=== PATIENT | male | born 1970 | race Caucasian/White ===

== ENCOUNTER 2022-02-02 16:37 | Outpatient (REF) | payer OTHER, SELFPAY ==
--- OUTSIDE RECORDS SUMMARY | 2022-02-02 18:47 | XMS_ITS | Clinical Summary ---
:1970 Author Organization [employer] [facility] [facility] [place] [address] Care Team Providers Name Role Phone Leodan Miller MD Primary Care Provider [phone] Chadd Rome MD Unavailable [phone] Nurses, Advanced Heart Failure Unavailable [phone] Allergies Active Allergy Reactions Severity Noted Date Comments Disopyramide Phosphate GI Upset, Vomiting 06/30/2017 Possible transaminitis Medications Medication Sig Dispensed Refills Start Date End Date Status ascorbic acid, Take 1 tablet 0 A ctive vitamin C, (VITAMIN by mouth once C) 125 mg chew daily. amoxicillin (AMOXIL) Take 2,000 mg 0 Active 500 mg capsule by mouth each time if needed for Other (Specify) (prior to dental procedure). Vitamin D-3 50 mcg TAKE 1 TABLET 90 Tablet 2 09/07/2021 Active (2,000 unit) BY MOUTH tabletIndications: EVERY DAY Persistent atrial fibrillation (HC) apixaban (Eliquis) 5 Take 1 Tablet 180 tablet. 3 10/14/2021 Active mg (5 mg) by tabletIndications: mouth in the Persistent atrial morning and 1 fibrillation (HC) Tablet (5 mg) in the evening. rosuvastatin Take 1 Tablet 90 Tablet 1 12/01/2021 Ac tive (CRESTOR) 40 mg (40 mg) by tabletIndications: mouth at Hyperlipidemia, bedtime. unspecified hyperlipidemia type sertraline (ZOLOFT) TAKE 1 TABLET 90 Tablet 1 12/31/2021 Active 50 mg (50 MG) BY tabletIndications: MOUTH ONCE Moderate episode of DAILY. TAKE recurrent major WITH 100 MG depressive disorder TAB FOR TOTAL (HC), Generalized OF 150 MG anxiety disorder, DAILY. PTSD (post-traumatic stress disorder) sertraline (ZOLOFT) TAKE 1 TABLET 90 Tablet 1 12/31/2021 Active 100 mg BY MOUTH ONCE tabletIndications: DAILY WITH 50 Moderate episode of MG TAB FOR recurrent major TOTAL OF 150 depressive disorder MG DAILY (HC), Generalized anxiety disorder, PTSD (post-traumatic stress disorder) spironolactone TAKE 1/2 45 Tablet 3 12/29/2021 Acti ve (ALDACTONE) 25 mg TABLET BY tabletIndications: MOUTH ONCE Hypertrophic DAILY cardiomyopathy (HC) zolpidem (AMBIEN) 5 TAKE 1 TABLET 30 Tablet 0 01/25/2022 Active mg BY MOUTH tabletIndications: EVERY DAY AT Insomnia, idiopathic BEDTIME NEEDED FOR SLEEP zolpidem (AMBIEN) 10 TAKE 1 TABLET 30 Tablet 0 01/25/2022 Active mg BY MOUTH tabletIndications: EVERY DAY AT Insomnia, idiopathic BEDTIME NEEDED FOR SLEEP metoprolol tartrate Take 1 Tablet 90 Tablet 3 01/29/2022 Active (LOPRESSOR) 25 mg (25 mg) by tabletIndications: mouth two Cardiomyopathy, times daily. unspecified type (HC) metoprolol tartrate TAKE 1 TABLET 180 Tablet 3 04/16/202101/02 Discontinued (LOPRESSOR) 25 mg BY MOUTH 2 tabletIndications: TWICE A DAY Cardiomyopathy, unspecified type (HC) zolpidem (AMBIEN) 10 TAKE 1 TABLET 30 Tablet 0 12/29/202101/02 Discontinued mg BY MOUTH AT 2 tabletIndications: BEDTIME Insomnia, idiopathic NEEDED FOR SLEEP zolpidem (AMBIEN) 5 TAKE 1 TABLET 30 Tablet 0 12/29/202101/25 Discontinued mg BY MOUTH AT 2 tabletIndications: BEDTIME Insomnia, idiopathic NEEDED FOR SLEEP Active Problems Problem Noted Date Severe episode of recurrent major depressive disorder, without psychotic 07/15/2021 features Generalized anxiety disorder 04/15/2018 PTSD (post-traumatic stress disorder) 04/15/2018 Chronic insomnia 04/15/2018 Moderate episode of recurrent major depressive disorde r 04/15/2018 Intracranial hemorrhage 07/20/2017 ICD (implantable cardioverter-defibrillator) in place 05/05/2016 Hypertrophic cardiomyopathy 08/03/2012 Overview: Sees phlebotomy program coordinator at [facility] for this. Hyperlipidemia Atrial fibrillation and flutter Resolved Problems Problem Noted Date Resolved Date At risk for HIV due to homosexual contact 07/23/2017 07/15/2021 Simple partial status epilepticus 07/20/20172021 Transaminitis 06/18/2017 07/15/2021 Cholelithiasis 04/12/2017 06/20/2020 Anticoagulation goal of INR 2 to 3 07/26/201307/26 Anticoagulation monitoring, INR range 2-3 (2.5-3.0) 07/27/19 14 08/25/2019 Persistent atrial fibrillation 08/15/2012 Encounter for long-term (current) use of anticoagulants 08/0107/26/2013 Atypical atrial flutter 06/20/2020 Cardiogenic shock 06/20/2020 Cardiomyopathy 06/20/2020 Overview: [facility]SS Encounters Date Type Specialty Care Team Description 01/26/2022 Refill Chadd Rome MD (Metoprolol Tar trate) 01/25/2022 Refill Leodan Miller Refill Requ german Caraballo MD (Zolpidem, Zolp idem) 01/17/2022 E-Visit Benton Reaves 01/11/2022 Orders Only Lab, Crlb Lab 12/28/2021 Refill Chadd Rome MD (Spironolactone ) 12/28/2021 Refill Leodan Miller Refill Requ german Caraballo MD (Zolpidem, Zolp idem) 12/28/2021 Refill Yusra Calderon Refill Req franklyn Castillo MD (Sertraline, Se rtraline) 12/01/2021 Office Visit Chadd Rome MD 12/01/2021 Hospital Encounter Dianelys Leahy Ca rdiomyopathy, QUALITY PROCESS AUDITOR unspecified type (HC) Rachel Dalton 12/01/2021 Orders Only Lab 12/01/2021 Refill Leodan Miller Refill Requ german Caraballo MD (Zolpidem, Zolp idem) 12/01/2021 Travel 11/30/2021 Travel 11/20/2021 Orders Only Leticia Oviedo RN <No sca ns attached> 11/11/2021 Orders Only Chadd Rome <No scans at tached> MD Papito 11/03/2021 Refill Leodan Miller Refill Requ est MD Rashmi (Zolpidem, Zolp idem) from Last 3 Months Immunizations Name Administration Dates Next Due AMB Influenza, IIV4 PF (=>6 mos 02/06/2020, 02/20/2019, 01/02 Flulaval,Fluzone Fluarix)(Flu Clinic Only) COVID-19 vaccine ([place] 08/03/2020, 07/13/2020 30mcg/0.3mL) PF, MDV Influenza Virus, Unspecified 01/29/2021, 01/31/2017, 013, 02/01/2012 Influenza, High-dose Inactivated 01/31/2013 Influenza, IIV3 (Age >=3 years) 02/02/2013, 02/01/2012, 01/02, 01/31/2010 Influenza, IIV4 01/27/2018, 01/21/2015, 02/01/2014 Influenza, IIV4 (=>6mos) MDV 01/22/2016, 01/21/2015 Pneumococcal Poly,23-Valent 08/15/2012, 08/15/2012 (Pneumovax) Td, Preservative Free (age >= 7 08/17/2006 Years) Tdap 01/27/2018, 08/17/2006 Zoster (Shingrix-RZV, recombinant) 08/30/2020, 06/28/2020 Family History Medical History Relation Name Comments GI Disease Father Gallabladder Hyperlipidemia Father GI Disease Mother gallbladder Heart Disease Mother cardiomyopathy Cancer-colon No Family History Cancer-prostate No Family History Diabetes No Family History Relation Name Status Comments Father Mother Social History Tobacco Use Types Packs/Day Years Used Date Never Smoker Smokeless Tobacco: Never Used Tobacco Cessation: Counseling Given: Yes Alcohol Use Standard Drinks/Week Comments Not Currently 0 (1 standard drink = 0.6 oz pure alcoho l) rare/New Years Alcohol Habits Answer Date Recorded How often do you have a drink containing alcohol? Not asked How many drinks containing alcohol do you have on a Not aske d typical day when you are drinking? How often do you have six or more drinks on one Not asked occasion? Comment: rare/New Years 05/05/2021 Sex Assigned at Date Recorded Not on file Obstetrics History Last Filed Vital Signs Vital Sign Reading Time Taken Comments Blood Pressure 112/70 12/01/2021 2:51 PM CDT Pulse 66 12/01/2021 2:51 PM CDT Temperature 37.1 ??C (98.8 ??F) 01/10/2021 11:56 AM CDT Respiratory Rate 18 01/01/2021 10:45 AM CDT Oxygen Saturation 99% 12/01/2021 2:51 PM CDT Inhaled Oxygen Concentration - - Weight 92.5 kg (204 lb) 12/01/2021 2:51 PM CDT Height 179.7 cm (5' 10.75) 07/15/2021 2:54 PM CDT Body Mass Index 28.65 07/15/2021 2:54 PM CDT Plan of Treatment Upcoming Encounters Date Type Specialty Care Team Description 02/10/2022 Telemedicine Roseann Walker NP [address] [place], [place] [address] (Wo rk) 02/23/2022 Appointment 02/23/2022 Appointment 04/21/2022 Cardiac Device Check 04/21/2022 Office Visit Yue Ferrer MD [address] [facility] [place] [address] (Wo rk) Health Maintenance Due Date Last Done Comments COVID-19 vaccine series (5 - 09/24/2021 07/30/2021, 021, Booster for Pfizer series) 08/03/2020, Additiona l history exists Influenza for age 50-64 01/01/2022 01/29/2021, 02/06/2020, 02/20/2019, Additional history exists BMI (ht and wt on same day) for 07/15/2022 07/15/2021, 01/01, age 18+ 11/28/2019, Additional history exists Depression screening for age 12+ 07/15/2022 07/15/2021, , 06/27/2021, Additional history exists Fecal testing non-DNA 01/11/2023 01/11/2022, 08/08/2020 (FIT,FOBT,iFOBT) for age 45-75 Lipids for age 45-75 12/01/2026 12/01/2021, 06/05/2021, 10/08/2020, Additional history exists Tetanus booster 01/28/2028 01/27/2018, 08/17/2006, 08/17/2006 Hepatitis C screening for age Completed 04/14/2017, 2016 18-79 Tdap Completed 01/27/2018, 08/17/2006 Zoster (shingles) series for age Completed 08/30/2020, 50+ Medical Devices Implanted Type Area Senior Electrical Estimator Device Shelf Model / Identifier Expiration Serial / Date Lot Dual Chamber Mri Conditional Icd ICD [employer] EVERA MRI XT DR DAWN [id number] / Implanted: 07/15/2017 by Yue Ferrer MD (Quantity not on file) Only [id number] / Jenny Hole Cover Neuro 17mm Synthes Low Pro Titnm - [id number] Right: J [employer] [id number]# / Implanted: Qty: 1 on 07/23/2017 by Parmjit Del Angel MD at [facility] [employer]ium CMF / Procedures Procedure Name Priority Date/Time Associated Diagnosis Comme nts OCCULT BLOOD IFOBT Routine 01/11/2022 12:00 Screening for Resu lts for this STOOL PM CDT colorectal cancer procedure are in the results section. STRESS TEST Routine 12/01/2021 1:45 Cardiomyopathy, Results f or this CARDIOPULMONARY PM CDT unspecified type (HC) pro cedure are in EXERCISE the results section. MAGNESIUM Routine 12/01/2021 12:41 Heart failure, Results f or this PM CDT unspecified HF procedure are in chronicity, the results unspecified heart section. failure type (HC) BASIC METABOLIC PANEL Routine 12/01/2021 12:41 Heart failure, Results for this PM CDT unspecified HF procedure are in chronicity, the results unspecified heart section. failure type (HC) ALT (SGPT) Routine 12/01/2021 12:41 Hyperlipidemia, Results for this PM CDT unspecified procedure are i n hyperlipidemia type the resu lts section. AST (SGOT) Routine 12/01/2021 12:41 Hyperlipidemia, Results for this PM CDT unspecified procedure are i n hyperlipidemia type the resu lts section. LIPID PANEL Routine 12/01/2021 12:41 Hyperlipidemia, Results for this PM CDT unspecified procedure are i n hyperlipidemia type the resu lts section. BRAIN NATRIURETIC Routine 12/01/2021 12:41 Cardiomyopathy, Res ults for this PEPTIDE PM CDT unspecified type (HC) proced ure are in the results section. from Last 3 Months Results OCCULT BLOOD IFOBT STOOL (01/11/2022 12:00 PM CDT) athologist Signature STOOL BLOOD Negative Negative 01/16/2022 [facility] ,IFOBT 12:15 PM CDT [facility] Specimen Anatomical Collection Method Collection Time Receive d Time (Source) Location / / Volume Laterality Stool STOOL SPECIMEN / Non-Blood / 01/11/2022 12:00 022 7:48 Unknown Unknown PM CDT AM CDT Leodan Miller MD LABORATORY Performing Organization Address City/State/ZIP Code Phon e Number [place] [phone] [place] [address] CLINIC STRESS TEST CARDIOPULMONARY EXERCISE (12/01/2021 1:45 PM CDT) Anatomical Region Laterality Modality Ultrasound Specimen (Source) Anatomical Location Collection Method / Collectio n Time Received Time / Laterality Volume Narrative 12/03/2021 7:01 AM CDT [facility] Cardiovascular Diagnostic Services [facility] [address] [place] [address] [facility] Cardiopulmonary Exercise Stress Test Name: Rickey Shelton Sex: male : 1970 Age: 51 y.o. Location: [facility] Exam Date: 12/01/2021 Referring: Chadd Rome MD Reason for test: End-stage hypertrophic cardiomyopathy. Protocol: Treadmill/ Modified Ayush ? ?Exercise Time: 8:26 Pertinent Medications: Lopressor 25 mg b .i.d. Baseline Peak % of Pred. Max HR Heart Rate 71 115 68 Blood Pressure 94/68 110/64 ?? Double Product 12,650 ?? Reason for Stopping Test: nausea Final Impression: 1. Inadequate exercise effort for assess ment of myocardial ischemia. 2. Non-diagnostic exercise stress ECG. 3. Adequate exercise effort for assessme nt of peak exercise capacity with a peak RER of 1.14. 4. Severely reduced peak exercise capaci ty with a peak VO2 of 16.9 mL/kg/minute (48% of the age, sex, and b ishaan weight predicted maximum VO2). 5. There were no oxygen desaturations an d the breathing reserve remained normal at 46.4%. 6. The ventilatory efficiency was mildly abnormal with a VE/VCO2 slope of 33 at the anaerobic threshold. 7. The peak O2 pulse was mildly to moder ately reduced at 14 mL/beat. 8. The VO2 to workload relationship was blunted. 9. There was no exercise oscillatory matt tilation. 10. The end-tidal CO2 response to exerci se was blunted. Interpretation: Following the collection of baseline nasrin ctrocardiographic and cardiopulmonary data, the patient underw ent graded exercise on the treadmill according to the Ayush prot ocol. Resting heart rate was 71 beats per minute, resting blood pressure 94/68 mmHg. The patient exercised for a total of 8 minutes and 26 seconds, stopping due to nausea. Achieved a maximum heart rate of 115 beats per mi nute (68%% of the age-predicted maximum heart rate) and a maximum blood pressure of 110/64 mmHg, yielding a rate pressure product of 12,650. Heart rate recovery at 1 minute was normal at 14 beats per minute. Resting maximum voluntary ventilation ca lculation was moderately reduced at 114 L (73% predicted). Resting electrocardiogram demonstrates s inus rhythm with normal axis and normal intervals. With graded exercise, there were no ischemic changes noted and no sustained dysrhythmias. Thi s study was nondiagnostic due to inadequate heart rate response. The resting cardiopulmonary data is nota ble for a resting VO2 of 3.4 mL/kg/minute. The resting room air satur ation is 98%. The minute ventilation is 8 L/min with a respirator y rate of 11. The anaerobic threshold was achieved at 4 minutes and 10 seconds of exercise time as assessed by the V-slope and end-tidal methods, yielding a value of 13.6 mL/kg/minute (39% of the a ge, sex, and body weight predicted maximum VO2). The peak oxygen consumption at the concl usion of exercise was 16.9 mL/kg/minute (48% of the age, sex, and b ishaan weight predicted maximum VO2). This was achieved with an adequate respi ratory exchange ratio of 1.14. There were no oxygen desaturations and t he breathing reserve remained normal at 46.4%. The ventilatory efficie ncy was mildly abnormal with a VE/VCO2 slope of 33 at the anaerobic thr eshold. The peak O2 pulse was mildly to moderately reduced at 14 mL/be at. The VO2 to workload relationship was blunted. There was no e xercise oscillatory ventilation. The end-tidal CO2 response to exercise w as blunted. [facility] 2017, [phone] Chadd Rome MD MAS/car / Dianelys Leahy [facility] CARDIAC SERVICES ORD (ABNORMAL) BRAIN NATRIURETIC PEPTIDE (12/01/2021 12:41 PM CDT) [facility] BRAIN BELLE 227 (H) <100 pg/mL 12/01/2021 [facility] PEPTIDE 1:31 PM CDT LABORATORY-AN[facility] TRAL LABORATORY Specimen Anatomical Collection Method / Collection Time Recei january Time (Source) Location / Volume Laterality Blood BLOOD SPECIMEN / Venipuncture / 12/01/2021 12:41 12/01 Unknown Unknown PM CDT 12:52 PM CDT Dianelys Leahy [facility] CHEMISTRY Performing Organization Address City/State/ZIP Code Phon e Number [facility] [address] [place] [address] LABORATORY-CENTRAL 2000 LABORATORY ALT (SGPT) (12/01/2021 12:41 PM CDT) athologist [facility] ALT (SGPT) 14 8 - 45 IU/L 12/01/2021 [facility] 1:25 PM CDT LABORATORY-CENT RAL LABORATORY Specimen Anatomical Collection Method / Collection Time Recei january Time (Source) Location / Volume Laterality Blood BLOOD SPECIMEN / Venipuncture / 12/01/2021 12:41 12/01 Unknown Unknown PM CDT 12:52 PM CDT Chadd Rome MD CHEMISTRY Performing Organization Address City/[facility]/ZIP Code Phon e Number [facility] [phone] [place] [address] [place] [address] LABORATORY-CENTRAL 2000 LABORATORY AST (SGOT) (12/01/2021 12:41 PM CDT) P athologist Signature AST (SGOT) 21 2 - 40 IU/L 12/01/2021 [facility] 1:25 PM CDT LABORATORY-CENT RAL LABORATORY Specimen Anatomical Collection Method / Collection Time Recei january Time (Source) Location / Volume Laterality Blood BLOOD SPECIMEN / Venipuncture / 12/01/2021 12:41 12/01 Unknown Unknown PM CDT 12:52 PM CDT Chadd Rome MD CHEMISTRY Performing Organization Address [facility]/ZIP Code Phon e Number [facility] [address] [place] [address] [place] [address] LABORATORY-CENTRAL 2000 LABORATORY MAGNESIUM (12/01/2021 12:41 PM CDT) athologist Signature MAGNESIUM 2.2 1.6 - 2.6 12/01/2021 [facility] mg/dL 1:25 PM CDT LABORATORY-CENTR AL LABORATORY Specimen Anatomical Collection Method / Collection Time Recei january Time (Source) Location / Volume Laterality Blood BLOOD SPECIMEN / Venipuncture / 12/01/2021 12:41 12/01 Unknown Unknown PM CDT 12:52 PM CDT Chadd Rome MD CHEMISTRY Performing Organization Address City/[facility]/ZIP Code Phon e Number [facility] [address] [facility] [address] [place] [address] LABORATORY-CENTRAL 2000 LABORATORY (ABNORMAL) LIPID PANEL (12/01/2021 12:41 PM CDT) [facility] Method Time Signature CHOLESTEROL,TOTAL 190 100 - 199 12/01/2021 [facility] mg/dL 1:25 PM CDT LABORATORY-[facility] LAB[facility]ATORY TRIGLYCERIDES 222 (H) <150 12/01/2021 [facility] mg/dL 1:25 PM CDT LAB[facility]AT[facility] HDL CHOLESTEROL 44 >40 mg/dL 12/01/2021 [facility] 1:25 PM CDT LABORATORY[facility] LAB[facility] NON-HDL 146 (H) <145 12/01/2021 [facility] CHOLESTEROL mg/dl 1:25 PM CDT LABORAT[facility] CHOL/HDL RATIO 4.32 <4.50 12/01/2021 [facility] 1:25 PM CDT [facility]AT[facility] LDL CHOLESTEROL 102 <=130 12/01/2021 [facility] mg/dL 1:25 PM CDT [facility]AT[facility] VLDL CHOLESTEROL 44 (H) <=30 12/01/2021 [facility] mg/dL 1:25 PM CDT LABORAT[facility] TR[facility] LABORATORY PROVIDER ORDERED RANDOM 12/01/2021 [facility] STATUS 1:25 PM CDT LABORAT[facility] LABORATORY Specimen Anatomical Collection Method / Collection Time Recei january Time (Source) Location / Volume Laterality Blood BLOOD SPECIMEN / Venipuncture / 12/01/2021 12:41 12/01 Unknown Unknown PM CDT 12:52 PM CDT Chadd Rome MD CHEMISTRY Performing Organization Address City/State/ZIP Code Phon e Number [facility] [phone] [place], [place] [address]E [place] [phone] LABORATORY-CENTRAL 2000 LABORATORY (ABNORMAL) BASIC METABOLIC PANEL (12/01/2021 12:41 PM CDT) Analysis Performed At Patho logist Time Signature SODIUM 141 135 - 145 12/01/2021 [facility] mmol/L 1:24 PM CDT LABORATORY-[facility] LAB[facility]ATORY POTASSIUM 4.9 3.5 - 5.0 12/01/2021 [facility] mmol/L 1:24 PM CDT LABORATORY[facility] CHLORIDE 105 98 - 110 12/01/2021 [facility] mmol/L 1:24 PM CDT LABORATORY[facility] CO2,TOTAL 28 21 - 31 12/01/2021 [facility] mmol/L 1:24 PM CDT LABORATORY[facility] LAB[facility] ANION GAP 8 5 - 18 12/01/2021 [facility] 1:24 PM CDT LABORATORY[facility]ORY GLUCOSE 105 (H) 65 - 100 12/01/2021 [facility] mg/dL 1:24 PM CDT LABORAT[facility] CALCIUM 10.1 8.5 - 10.5 12/01/2021 [facility] mg/dL 1:24 PM CDT LABORAT[facility] BUN 13 8 - 25 12/01/2021 [facility] mg/dL 1:24 PM CDT LAB[facility]AT[facility] CREATININE 1.14 0.72 - 12/01/2021 [facility] 1.25 mg/dL 1:24 PM CDT LAB[facility]AT[facility] BUN/CREAT RATIO 11 10 - 20 12/01/2021 [facility] 1:24 PM CDT LAB[facility] eGFR 78 (L) >90 12/01/2021 [facility] mL/min/1.7 1:24 PM CDT LABORATORY-ANNA 3m2 TRAL LABORATORY Comment: As of 2021, eGFR is calcu lated by the CKD-EPI creatinine equation without race adjustment. eGFR can be inf luenced by muscle mass, exercise, and diet. The reported eGFR is an estimation only and is only applicable if the renal function is stable. Specimen Anatomical Collection Method / Collection Time Recei january Time (Source) Location / Volume Laterality Blood BLOOD SPECIMEN / Venipuncture / 12/01/2021 12:41 12/01 Unknown Unknown PM CDT 12:52 PM CDT Chadd Rome MD CHEMISTRY Performing Organization Address City/State/ZIP Code Phon e Number [facility] [address] [place] [address] LABORATORY-CENTRAL 2000 LABORATORY from Last 3 Months Insurance Payer Benefit Plan / Subscriber ID Effective Dates Phone Addre ss Type [facility] [employer] [employer] [id number] 2014-Present [address] [place] [address] Advance Directives Documents on File Type Date Recorded Patient Head Inspector And Center Marker Explanati on Healthcare Directive 12/15/2018 10:34 AM [facility] RE DIRECTIVE, FRACISCO RODRÍGUEZ, Latest Code Status on File Code Status Date Activated Date Inactivated Comments Full Code 01/01/2021 9:09 AM 01/01/2021 1:08 PM Code Status Discussion: Not Discussed Full Code 01/10/2018 6:18 PM 01/11/2018 5:31 PM Full Code 01/04/2018 2:08 PM 01/04/2018 5:25 PM Full Code 12/28/2017 7:02 AM 12/28/2017 5:57 PM Full Code 11/01/2017 8:30 PM 11/03/2017 2:33 PM Care Teams Glass Tube Bender Relationship Specialty Start Date End Date Leodan Miller PCP - General Family Practice 03/23/17 MD Rashmi [facility] [place] [address] Chadd Rome Cardiology - CHF Cardiovascular Disease 07/19/17 MD Pap[facility] [address] [place] [phone] Nurses, Advanced Heart Advanced Heart 07/19/17 Failure Failure/Transplant Card [address], [place] [phone]
--- OUTSIDE RECORDS SUMMARY | 2022-02-02 18:47 | XMS_ITS ---
:1970 Author Care Team Providers Name Role Phone DR. LUIS MCCORD Primary Care Provider [phone] Allergies None recorded. Medications Name Status Start Date Stop Date ? ? amiodarone 400 mg tablet Active ? Not rolando ilable amoxicillin 500 mg capsule Active ? Not a vailable dexamethasone 2 mg tablet Active ? Not av ailable Digox 125 mcg (0.125 mg) tablet Active ? Not available DILT-XR 180 mg capsule, extended release Active ? Not available dofetilide 500 mcg capsule Active ? Not a vailable furosemide 20 mg tablet Active ? Not avai lable levetiracetam 1,000 mg tablet Active ? No t available metoprolol tartrate 25 mg tablet Active ? Not available metoprolol tartrate 50 mg tablet Active ? Not available Norpace CR 100 mg capsule,extended release Active ? Not available oxycodone 5 mg tablet Active ? Not availa ble oxycodone-acetaminophen 5 mg-325 mg tablet Active ? Not available pantoprazole 40 mg tablet,delayed release Active ? Not available potassium chloride ER 10 mEq tablet,extended Active ? Not available release(part/cryst) potassium chloride ER 20 mEq tablet,extended Active ? Not available release(part/cryst) Ranexa 500 mg tablet,extended release Active ? Not available sotalol 160 mg tablet Active ? Not availa ble warfarin 5 mg tablet Active ? Not availab le zaleplon 5 mg capsule Active ? Not availa ble zolpidem 5 mg tablet Active ? Not availab le Problems None recorded. Procedures None recorded. Results Lab Results None recorded. Past Encounters None recorded. Social History None recorded. Vaccine List None recorded. Plan of Care Reminders Provider Appointments None recorded. ? ? Lab None recorded. ? ? Referral None recorded. ? ? Procedures None recorded. ? ? Surgeries None recorded. ? ? Imaging None recorded. ? ? Vitals None recorded.
[2022-02-02 19:31] LABS: SARS PCR* Negative SARS-CoV-2 (Negative)
== END 2022-02-02 16:38 | disposition home or self-care (01) ==
LOC: NPINS 16:37
PROVIDERS: PCP Family Medicine; Visit Provider Nurse Practitioner
DX: Z20.822 Contact with and (suspected) exposure to COVID-19 (principal)
CPT/HCPCS: 87635

== ENCOUNTER 2022-02-03 21:02 | Outpatient (CLI) | payer OTHER, SELFPAY ==
--- OUTSIDE RECORDS SUMMARY | 2022-02-03 21:14 | XMS_ITS | Clinical Summary ---
:1970 Author Organization [facility] [place] [address] Care Team Providers Name Role Phone Leodan Miller MD Primary Care Provider [phone] Chadd Rome MD Unavailable [phone] Nurses, Advanced Heart Failure Unavailable [phone] Allergies Active Allergy Reactions Severity Noted Date [...] place 05/05/2016 Hypertrophic cardiomyopathy 08/03/2012 Overview: Sees hemodialysis rn at [place] for this. Hyperlipidemia Atrial fibrillation and flutter [...] Chadd Rome MD 12/01/2021 Hospital Encounter Dianelys Laehy Ca rdiomyopathy, ONLINE FACILITATOR unspecified type (HC) Rachel Dalton 12/01/2021 Orders [...] 01/02 Flulaval,Fluzone Fluarix)(Flu Clinic Only) COVID-19 vaccine (Domee 08/03/2020, 07/13/2020 30mcg/0.3mL) PF, MDV Influenza Virus, [...] Telemedicine Roseann Walker NP [address] [place], [place] [address] (Wo rk) 02/23/2022 Appointment 02/23/2022 Appointment 04/21/2022 Cardiac Device Check 04/21/2022 Office Visit Yue Ferrer MD [address] [facility] [place] [address] (Wo rk) Health Maintenance Due Date Last [...] 08/30/2020, 50+ Medical Devices Implanted Type Area Hand Hardener Device Shelf Model / Identifier Expiration Serial / Date Lot Dual Chamber Mri Conditional Icd ICD Med[employer]onic EVERA MRI XT DR DAWN [id number] / Implanted: 07/15/2017 by Yue Ferrer MD (Quantity not on file) Only [id number] / Jenny Hole Cover Neuro 17mm Synthes Low Pro Titnm - [id number] Right: J [employer] [place] [id number]# / Implanted: Qty: 1 on 07/23/2017 by Parmjit Del Angel MD at [facility] Cranium CMF / Procedures Procedure [...] athologist Signature STOOL BLOOD Negative Negative 01/16/2022 [facility] ,IFOBT 12:15 PM CDT [facility] Specimen Anatomical Collection Method Collection Time Receive d Time (Source) Location / / Volume Laterality Stool STOOL SPECIMEN / Non-Blood / 01/11/2022 12:00 022 7:48 Unknown Unknown PM CDT AM CDT Leodan Miller MD LABORATORY Performing Organization Address City/State/ZIP Code Phon e Number [place] [phone] [place] [address] CLINIC STRESS TEST CARDIOPULMONARY EXERCISE (12/01/2021 1:45 PM CDT) Anatomical Region Laterality Modality Ultrasound Specimen (Source) Anatomical Location Collection Method / Collectio n Time Received Time / Laterality Volume Narrative 12/03/2021 7:01 AM CDT [facility] Cardiovascular Diagnostic Services [facility] [address] [place] [address] [facility] Cardiopulmonary Exercise Stress Test Name: Rickey Shelton Sex: male : 1970 Age: 51 y.o. Location: [facility] Exam Date: 12/01/2021 Referring: Chadd Rome MD [...] CO2 response to exercise w as blunted. [facility] 2017, [phone] Chadd Rome MD MAS/car / Dianelys Leahy [facility] CARDIAC SERVICES ORD (ABNORMAL) BRAIN NATRIURETIC PEPTIDE (12/01/2021 12:41 PM CDT) [facility] BRA[facility] BELLE 227 (H) <100 pg/mL 12/01/2021 [facility] PEPTIDE 1:31 PM CDT LABORATORY-[facility] LABORATORY Specimen Anatomical Collection Method / Collection Time Recei january Time (Source) Location / Volume Laterality Blood BLOOD SPECIMEN / Venipuncture / 12/01/2021 12:41 12/01 Unknown Unknown PM CDT 12:52 PM CDT Dianelys Leahy [facility] CHEMISTRY Performing Organization Address City/State/ZIP Code Phon e Number [facility] [address] [place] [address] LABORATORY-CENTRAL 2000 LABORATORY ALT (SGPT) (12/01/2021 12:41 PM CDT) athologist [facility] ALT (SGPT) 14 8 - 45 IU/L 12/01/2021 [place] 1:25 PM CDT LABORATORY-CENT RAL LABORATORY Specimen Anatomical Collection Method / Collection Time Recei january Time (Source) Location / Volume Laterality Blood BLOOD SPECIMEN / Venipuncture / 12/01/2021 12:41 12/01 Unknown Unknown PM CDT 12:52 PM CDT Chadd Rome MD CHEMISTRY Performing Organization Address City/[facility]/ZIP Code Phon e Number [facility] [address] [place] [address] [place] [address] LABORATORY-CENTRAL 2000 LABORATORY AST (SGOT) (12/01/2021 12:41 PM CDT) P athologist Signature AST (SGOT) 21 2 - 40 IU/L 12/01/2021 [facility] 1:25 PM CDT LABORATORY-CENT RAL LABORATORY Specimen Anatomical Collection Method / Collection Time Recei january Time (Source) Location / Volume Laterality Blood BLOOD SPECIMEN / Venipuncture / 12/01/2021 12:41 12/01 Unknown Unknown PM CDT 12:52 PM CDT Chadd Rome MD CHEMISTRY Performing Organization Address [facility]/ZIP Code Phon e Number [place] [facility] [phone] [place] [address] [place] [address] LABORATORY-CENTRAL 2000 LABORATORY MAGNESIUM (12/01/2021 12:41 PM CDT) athologist Signature MAGNESIUM 2.2 1.6 - 2.6 12/01/2021 [facility] mg/dL 1:25 PM CDT LABORATORY-CENTR AL LABORATORY Specimen Anatomical Collection Method / Collection Time Recei january Time (Source) Location / Volume Laterality Blood BLOOD SPECIMEN / Venipuncture / 12/01/2021 12:41 12/01 Unknown Unknown PM CDT 12:52 PM CDT Chadd Rome MD CHEMISTRY Performing Organization Address City/[facility]/ZIP Code Phon e Number [facility] [address] [address] LABORATORY-CENTRAL 2000 LABORATORY (ABNORMAL) LIPID PANEL (12/01/2021 12:41 PM CDT) [facility] Method Time Signature CHOLESTEROL,TOTAL 190 100 - 199 12/01/2021 [facility] mg/dL 1:25 PM CDT LABORATORY-[facility] LABORATORY TRIGLYCERIDES 222 (H) <150 12/01/2021 [facility] mg/dL 1:25 PM CDT LABORATORY-[facility] LABORATORY HDL CHOLESTEROL 44 >40 mg/dL 12/01/2021 [facility] 1:25 PM CDT LABORATORY-[facility] LABORATORY NON-HDL 146 (H) <145 12/01/2021 [facility] CHOLESTEROL mg/dl 1:25 PM CDT LAB[facility]AT[facility] CHOL/HDL RATIO 4.32 <4.50 12/01/2021 [facility] 1:25 PM CDT LABORATORY-[facility] LABORATORY LDL [...] Organization Address City/State/ZIP Code Phon e Number [facility] [phone] [place], [place] [address]E [place] [phone] LABORATORY-CENTRAL 2000 LABORATORY (ABNORMAL) BASIC METABOLIC PANEL (12/01/2021 12:41 PM CDT) Analysis Performed At Patho logist Time Signature SODIUM 141 135 - 145 12/01/2021 [facility] mmol/L 1:24 PM CDT LABORATORY-[facility] LABORATORY POTASSIUM 4.9 3.5 - 5.0 12/01/2021 [facility] mmol/L 1:24 PM CDT LABORATORY[facility] LAB[facility]AT[facility] CHLORIDE 105 98 - 110 12/01/2021 [facility] mmol/L 1:24 PM CDT LABORATORY[facility] LAB[facility] CO2,TOTAL 28 21 - 31 12/01/2021 [facility] mmol/L 1:24 PM CDT LABORATORY[facility] LABORATORY ANION GAP 8 5 - 18 12/01/2021 [facility] 1:24 PM CDT LABORATORY[facility] LAB[facility] GLUCOSE 105 (H) 65 - 100 12/01/2021 [facility] mg/dL 1:24 PM CDT LABORATORY-[facility]NA TRAL LABORATORY [...] Address City/State/ZIP Code Phon e Number [facility] [address] [place] [address] LABORATORY-CENTRAL 2000 LABORATORY from Last 3 Months Insurance Payer Benefit Plan / Subscriber ID Effective Dates Phone Addre ss Type [facility] [employer] [id number] 2014-Present [address] [place] [address] Advance Directives Documents on File Type Date Recorded Patient Certified Nurse Practitioner Explanati on Healthcare Directive 12/15/2018 10:34 AM [...] 8:30 PM 11/03/2017 2:33 PM Care Teams Resolution Expert Relationship Specialty Start Date End Date Leodan Miller PCP - General Family Practice 03/23/17 MD [facility] [place] [address] Chadd Rome Cardiology - CHF Cardiovascular Disease 07/19/17 MD [facility] [address] [place] [phone] Nurses, Advanced Heart Advanced Heart 07/19/17 Failure Failure/Transplant Card [address], [place] [phone]
--- OUTSIDE RECORDS SUMMARY | 2022-02-03 21:14 | XMS_ITS ---
:1970 Author Care Team Providers Name Role Phone DR. LUIS MCCORD Primary Care Provider [phone] Allergies None recorded. Medications Name Status Start [...]
== END 2022-02-03 21:03 | disposition home or self-care (01) ==
LOC: SLEEP 21:03
PROVIDERS: PCP Family Medicine
DX: G47.33 Obstructive sleep apnea (adult) (pediatric) (principal)
CPT/HCPCS: 95810

== ENCOUNTER 2022-10-22 21:07 | Emergency (ER) | payer BC, SELFPAY ==
[2022-10-22 21:13] VITALS: BP 117/75; PULSE 68; RESP 18; TEMP 36.7; O2SAT 99; BMI 27.2
--- NOTE | 2022-10-22 21:31 | ED_ITS ---
HPI - General Adult General Time Seen by Provider: 21:31 Date Seen: 10/22/22 Chief complaint: Unspecified Complaint, Adult Stated complaint: possible HIV exposure Time Seen by Provider: 10/22/22 21:13 Source: patient, RN notes reviewed and old records reviewed Mode of arrival: ambulatory Limitations: no limitations History of Present Illness HPI narrative: 52-year-old male who comes in today concerned about HIV exposure. Had receptive anal intercourse yesterday and today with no barrier contraceptive. No known prior history of HIV. Related Data Previous Rx's Medication Instructions Recorded doxycycline monohydrate 100 mg 100 mg PO BID #14 caps 10/22/22 capsule emtricitabine 200 mg-tenofovir 1 tab PO DAILY #30 tabs 10/22/22 alafenamide fumarate 25 mg tablet (Descovy) ondansetron 4 mg disintegrating 4 mg PO Q8H PRN nausea and 10/22/22 tablet vomiting #30 tabs raltegravir 600 mg tablet 1,200 mg (2 x 600 mg) PO DAILY #30 10/22/22 tabs Allergies Allergy/AdvReac Type Severity Reaction Status Date / Time No Known Drug Allergies Allergy Verified 10/22/22 21:15 Exam Narrative: Exam Narrative: General: Well-developed and well-nourished, no acute distress Head: Atraumatic and normocephalic Eyes: Pupils are equal reactive, extraocular motions intact, conjunctiva clear ENT: External nose and ears are normal, posterior pharynx without erythema or exudate Neck: No midline cervical tenderness, full spontaneous range of motion the neck, trachea midline, no adenopathy Heart: Regular rate and rhythm 2/6 systolic murmur Lungs: Clear to auscultation bilaterally without wheezes or crackles Abdomen: Soft, nontender, nondistended with active bowel sounds Musculoskeletal: No tenderness, deformity, or edema Neurologic: Awake, alert, and oriented x3, no gross focal neurologic deficits, cranial nerves intact as tested Psych: Mood and affect are appropriate Skin: No rashes Const: Vital Signs, click to edit/add: Vital Signs - 24 hr 10/22/22 21:13 Temperature 98.0 F Pulse Rate [Right Pulse Oximeter] 68 Respiratory Rate 18 Blood Pressure [Ri ght Upper Arm] 117/75 Pulse Oximetry 99 Oxygen Delivery Me thod Room Air Course Course Hospital Course: Patient presents today with concern for HIV exposure. Discussed low rates of HIV regionally, patient would like to proceed with post exposure prophylaxis and will be started on medications. Also recommended starting post exposure treatment for gonorrhea chlamydia and patient is agreeable. Rocephin, doxycycline, Descovy and Raltegravir prescribed Vital Signs Vital signs: Initial Vital Signs Temperature 98.0 F 10/22/22 21:13 Temperature Source Temporal Artery Scan 10/22/22 21:13 Pulse Rate 68 10/22/22 21:13 Respiratory Rate 18 10/22/22 21:13 Blood Pressure 117/75 10/22/22 21:13 Blood Pressure Mean 89 10/22/22 21:13 Blood Pressure Position Sitting 10/22/22 21:13 Pulse Oximetry 99 10/22/22 21:13 Oxygen Delivery Method Room Air 10/22/22 21:13 Vital Signs Temperature 98.0 F 10/22/22 21:13 Pulse Rate 68 10/22/22 21:13 Respiratory Rate 18 10/22/22 21:13 Blood Pressure 117/75 10/22/22 21:13 Pulse Oximetry 99 10/22/22 21:13 Oxygen Delivery Method Room Air 10/22/22 21:13 Temperature 98.0 F 10/22/22 21:13 Pulse Rate 68 10/22/22 21:13 Respiratory Rate 18 10/22/22 21:13 Blood Pressure 117/75 10/22/22 21:13 Pulse Oximetry 99 10/22/22 21:13 Oxygen Delivery Method Room Air 10/22/22 21:13 Discharge Plan Discharge Clinical Impression: Possible exposure to STD Condition: Stable Instructions: Postexposure Prophylaxis (ED) Additional Instructions: Take medications as prescribed. Follow-up in 2 weeks with her primary care pr ovider for repeat blood testing. Follow-up with your primary care doctor to doctor for HIV testing at 6 weeks, 12 weeks, and 6 months Activity Level: No Restrictions Discharge Diet: Regular Prescriptions: New doxycycline monohydrate 100 mg capsule 100 mg PO BID Qty: 14 0RF Descovy 200-25 mg tablet 1 tab PO DAILY Qty: 30 0RF raltegravir 600 mg tablet 1,200 mg PO DAILY Qty: 30 0RF ondansetron 4 mg tablet,disintegrating 4 mg PO Q8H PRN (Reason: nausea and vomiting) Qty: 30 0RF Follow Up/Referrals: Leodan Miller MD [Primary Care Provider] - Stand Alone Forms: MyHealth Info Instructions
--- OUTSIDE RECORDS SUMMARY | 2022-10-22 21:41 | XMS_ITS | Continuity of Care Document ---
Author Name Unknown Organization [facility] Address [address] [address] [place] [address] Phone Care Team Providers Care Skating Carhop Name Role Phone Ansley TAVAREZ, Donaldo Unavailable Unavailable Procedures Procedure Date Init Hosp-da E&m Mod Severity 8 Subsqt Hosp-da E&m Minr Compl 7 Ugi Endo; W/endo Ultrasound Ex 17 Ercp; W/sphincterotomy/papillo 17 Ercp; W/endo Retro Remov Stone 17 Init Hosp-da E&m Mod Severity 7 Advance Directives Directive Yes / No Effective Date File Name No Information Encounters Encounter Description Practice Location Reason(s) For Visit Diagnoses Date Provider Providers Copied on Encounter [facility], [address] [address], [place], [place], [id number], [place] tel:[phone] [facility] No Information 8 Ansley Fulton. [address] [place] [address], [id number] , [place]. tel:[phone] Init Hosp-da E&m Mod Severity [facility], [address] [address], [place], [place], [id number], [place] [phone] [facility] No Information 8 Ansley Fulton. [address] [place] [address], [id number] , [place]. [phone] Referring Provider: Suzanna Chapman, [address] [place] [address] [place] [id number], [place], [address]. tel:[phone] Subsqt Hosp-da E&m Minr Compl [facility], [address] [address], [place], [place], [id number], [place] tel:[phone] [facility] No Information 7 Reagan Whitfield. [address] [facility] [address], [facility] [address], [place], [id number] , [place]. tel: [phone] Referring Provider: Suzanna Chapman, [address] [place] [address] [place] [id number], [place], [address]. tel:[phone] [facility], [address] [address], [place], [place], [id number], [place] tel:[phone] [facility] No Information 7 Jenny Parham. [address] [place] [address] [address], [place], [id number] , [place]. tel: [phone] Referring Provider: Suzanna Chapman, [address] [place] [address] [place] [id number], [place], [address]. tel:[phone] Init [facility]-da E&m Mod Severity [facility], [address] [address], [place], [place], [id number], [place] tel: [phone] [facility] No Information 7 Kenna Guillory. [address] [place] [address] [address], [place], [id number] , [place]. tel: [phone] Referring Provider: Suzanna Chapman, [address] [place] [address] [place] [id number], [place], [address]. tel:[phone] Family History Family Member Type Diagnosis Age At Onset No Information Payers Payer name Insurance type Covered green party ID Authoriza tion(s) No Information Social History Type Description Quantity Date Captured Comments Sex Male Smoking Status No Information Chief Complaint And Reason For Visit No Information Reason For Referral Reason For Referral No Information Plan Of Treatment Date Type Action Status No Information History Of Present Illness Encounter Date Complaint History Of Prese nt Illness No Information Functional Status Date Functional Assessmen t No Information Instructions Date Instruction Additional Infor mation No Information Assessments Type Assessment Date No Information Patient Care Teams Name Effective Dates (start - stop) Status Members No Information
[2022-10-22] MEDS: LIDOCAINE 1% 5 ml (pf) 5 ML VIAL 1 ML IM (21:54)
[2022-10-22] MEDS: DOXYCYCLINE HYCLATE 100 MG CAPSULE PO (21:54)
[2022-10-22] MEDS: cefTRIAXone 500 MG VIAL IM (21:54)
[2022-10-22 22:03] LABS: Basophils Absolute Auto 0.01 K/uL (0.00-0.30); Basophils Percent Auto 0.1 % (0.0-3.0); Eosinophils Absolute Auto 0.03 K/uL (0.00-0.50); Eosinophils Percent Auto 0.4 % (0.0-7.0); Hematocrit 42.3 % (37.0-53.0); Hemoglobin* 14.6 gm/dL (13.5-17.5); Immature Granulocytes Abs Auto 0.01 K/uL (0.00-0.30); Immature Granulocytes Pct Auto 0.1 %; Mean Corpuscular HGB Conc 35 gm/dL (32-36); Mean Corpuscular Hemoglobin 30 pg (26-34); Mean Corpuscular Volume 87 fL (80-100); Monocytes Percent Auto 10.8 % (0.0-11.0); Neutrophils Absolute Auto 4.34 K/uL (1.7-7.0); Neutrophils Percent Auto 61.6 % (42.0-72.0); Platelet Count* 247 K/uL (140-440); RDW Coefficient of Variation % 12.7 % (11.5-15.5); Red Blood Count 4.88 m/uL (4.30-5.90); White Blood Count* 7.05 K/uL (4.50-11.00)
[2022-10-22 22:06] LABS: Slide Review Reflex No
[2022-10-22 22:20] VITALS: BP 113/74; PULSE 71; RESP 18; TEMP 36.7; O2SAT 99
[2022-10-22 22:21] VITALS: BP 113/74; PULSE 71; RESP 18; TEMP 36.7
[2022-10-22 22:21] LABS: Albumin* 4.9 g/dL (3.3-5.0); Chloride* 102 mmol/L (96-114)
[2022-10-22 22:22] LABS: Potassium* 4.5 mmol/L (3.6-5.1); Sodium* 139 mmol/L (135-149)
[2022-10-22 22:24] LABS: Alkaline Phosphatase* 34 U/L (40-150); Aspartate Amino Transferase* 56 U/L (12-35); Bilirubin Total* 0.6 mg/dL (0.1-1.5); Blood Urea Nitrogen* 11 mg/dL (7-30); Carbon Dioxide* 27 mmol/L (20-32); Creatinine* 1.1 mg/dL (0.5-1.5); Est. Creatinine Clearance* 83.67; Estimated Glomerular Filt Rate 81 ml/min; Total Protein* 7.2 g/dL (6.0-8.3)
[2022-10-22 22:25] LABS: Alanine Aminotransferase* 30 U/L (4-50); Glucose* 115 mg/dL (60-115)
[2022-10-22 23:26] LABS: HIV 1/2/P24 Combo Screen* Negative (Negative)
== END 2022-10-22 22:21 | disposition home or self-care (01) ==
PROVIDERS: Emergency Provider Family Medicine; PCP Family Medicine
DX: Z20.6 Contact with and (suspected) exposure to human immunodeficiency virus [HIV] (principal)
CPT/HCPCS: 36415; 80048; 80076; 85025; 86703; 96372; 99283; 99284; A9270; J0696

== ENCOUNTER 2022-11-17 18:10 | Day surgery (SDC) | payer BC, SELFPAY ==
[2022-11-17] MEDS: BUPIVACAINE 0.5% 30 ML INJECTION (19:00)
[2022-11-17] MEDS: BUPIVACAINE LIPOSOME 133 MG/10 ML INJ INFILTRATI (19:00)
--- NOTE | 2022-11-17 19:12 | PC.NURSE ---
pt up to floor at 1830 accompanied by . pre op checklist done. IV access in right wrist. pre op vitals done. Dr. Horne consulting with patient in room.
--- NOTE | 2022-11-17 19:13 | PM.GSPRC ---
Operative Note Date of procedure: 11/17/22 Pre-op diagnosis: Pain after hemorrhoidal banding Post-op diagnosis: Same Type of Procedure: Exam under anesthesia, removal of hemorrhoid ligation band Indications: The patient is a 52-year-old male who presented to clinic with hemorrhoidal symptoms. Anoscopy revealed redundant internal hemorrhoidal tissue. These were banded x2 without pain. The patient however several minutes later began to have mild discomfort. By the time he got home he had pain which cause pressure and nausea. He returned to clinic and underwent an exam. The bands appeared to be above the dentate line and in good position. We attempted 1st anesthetizing the area to see if this relieved the pain, however the pressure continued. I was able to remove the right lateral band in the clinic. The patient had some relief after the procedure, however his pain then worsened. I was unable to adequately expose the area to remove the anterior band because at this point the patient had swelling of external hemorrhoidal tissue. I recommended excision in the OR with anesthesia. He agreed to proceed. Procedure Description: After discussing the the procedure, the patient signed informed consent.? The patient was brought to the operating room and placed on the operating table in prone position.? Care was taken to pad the patient's pressure points.?? The patient was then given sedation by anesthesia.?? A time-out was then performed. Digital rectal exam was then performed. The anterior tissue was palpable. I was able to expose this and grasped the band with a grasper. I then excised the rubber band with a scissor. I then used a Machado bivalve to examine the anal canal. The previously placed banded tissue appeared well perfused. The area where had just removed the band was still somewhat ischemic on the mucosa. The patient had now prominent external hemorrhoidal tissue which had not been present when he underwent initial exam in clinic but was present when he came back for his 2nd exam after he was having discomfort. This was not thrombosed. The area was hemostatic. I then injected 20 mL of a mix of Marcaine and Exparel performing a pudendal block as well as the tissue around the anal area. ? The patient was then woken and transported to the recovery area in stable condition. ? The patient tolerated the procedure well. Findings: Anterior hemorrhoidal band removed. This had been located above the dentate line. Patient now, after anoscopy and the procedures has inflammation of external hemorrhoidal tissue at the anal verge. Anesthesia: MAC Surgeon: Cherrie Coffman MD Estimated blood loss (mL): 1 Condition: stable Disposition: same day
--- NOTE | 2022-11-17 19:20 | P.ANES_ITS ---
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
[2022-11-17] MEDS: HYDROCODONE-ACETAMIN 5-325 MG 1 TAB PO (19:41)
--- NOTE | 2022-11-17 21:26 | PC.NURSE ---
recovered pt on MS. VSS. reviewed d/c packet. answered questions appropriately. IV d/c'd, cath intact. left floor at 2057 with spouse Chase.
== END 2022-11-17 20:58 | disposition home or self-care (01) ==
LOC: SS 18:11 → MEDSURG 18:11
PROVIDERS: PCP Family Medicine; Visit Provider Surgery
PROC: (CPT 46500; principal; 2022-11-17 19:00)
DX: K64.4 Residual hemorrhoidal skin tags (principal); K62.89 Other specified diseases of anus and rectum
CPT/HCPCS: 46500; 00902; 99140; A9270; C9290; J0665; J2704; J3010

== ENCOUNTER 2024-06-15 16:04 | Outpatient (CLI) | payer OTHER, SELFPAY | END 2024-06-15 16:05 | disposition home or self-care (01) | LOC: NFLDREF 06-17 02:36 | PROVIDERS: PCP Family Medicine; Referring Provider Family Medicine; Visit Provider Physician Assistant | DX: R81 Glycosuria (principal); N39.0 Urinary tract infection, site not specified | CPT/HCPCS: 87086; 87186 ==